=== PATIENT | female | born 1990 | race Caucasian/White ===

== ENCOUNTER 2020-04-07 22:47 | Emergency (ER) | payer BC, MEDICAID ==
[~2020-04-07] VITALS: Ht 162.6 cm; Wt 86.0 kg
--- NOTE | 2020-04-07 23:51 | NUR ---
PT. AMBULATORY TO ROOM FORM LOBBY WITH STEADY GAIT AT THIS TIME ACCOMPANIED BY FAMILY MEMBER. INSTRUCTED TO CHANGE INTO HOSPITAL GOWN.
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
[2020-04-08] MEDS ORDERED: FAMOTIDINE 20 MG/2 ML ONE (00:16)
[2020-04-08] MEDS ORDERED: LORazepam 2 MG/ML, 1ML ONE ×2 (00:16→01:57)
[2020-04-08] MEDS ORDERED: ONDANSETRON 2MG/ML, 2ML ONE (00:16)
[2020-04-08] MEDS ORDERED: ONDANSETRON 2MG/ML, 2ML IVPush ONE (00:30)
[2020-04-08] MEDS ORDERED: SODIUM CHLORIDE 0.9% 1,000ML IVBOLUS ONE (00:30)
[2020-04-08] MEDS ORDERED: SODIUM CHLORIDE FLUSH 10ML SYR IVF ONE (00:30)
[2020-04-08] MEDS ORDERED: FAMOTIDINE 20 MG/2 ML IVPush ONE (00:30)
[2020-04-08] MEDS: LORazepam 2 MG/ML, 1ML IVPush PRN ×2 (00:34→01:59)
--- NOTE | 2020-04-08 00:37 | NUR ---
IV ESTABLISHED AND PT. MEDICATED PER MAR. BLOOD DRAWN. IVF INFUSING PER MAR.
--- NOTE | 2020-04-08 00:46 | NUR ---
REPORT RECEIVED FROM MARCUS OBANDO. ASSUMED CARE OF PT
[2020-04-08 00:52] LABS: ALBUMIN 4.1 g/dL (3.4-5.0); ANION GAP 11 mmol/L (5-15); CALCIUM 8.9 mg/dL (8.5-10.1); CHLORIDE 105 mmol/L (98-107)
[2020-04-08 00:58] LABS: ALANINE AMINOTRANSFERASE 63 U/L (12-78); ALKALINE PHOSPHATASE 81 U/L (45-117); CREATININE 1.19 mg/dL (0.55-1.02); TOTAL PROTEIN 8.3 g/dL (6.4-8.2)
[2020-04-08 01:35] LABS: BASOPHILS # (AUTO) 0.04 x10^3/uL (0-0.1); BASOPHILS % (AUTO) 0 % (0-1); EOSINOPHILS # (AUTO) 0.01 x10^3/uL (0-0.4); EOSINOPHILS % (AUTO) 0 % (1-7); LYMPHOCYTES % (AUTO) 5 % (22-44); MD SCAN; MEAN CORPUSCULAR HEMOGLOBIN 31.8 pg (27.0-34.8); MEAN CORPUSCULAR HGB CONC 32.4 g/dL (32.4-35.8); MEAN PLATELET VOLUME 8.9 fL (7.4-10.4); MONOCYTES # (AUTO) 0.33 x10^3/uL (0.2-0.8); MONOCYTES % (AUTO) 2 % (2-9); NEUTROPHILS # (AUTO) 20.53 x10^3/uL (1.8-6.8); NEUTROPHILS % (AUTO) 93 % (42-75); PLATELET COUNT 296 x10^3/uL (130-400); RED BLOOD COUNT 4.71 x10^6/uL (3.82-5.3); RED CELL DISTRIBUTION WIDTH 14.2 % (9.6-15.2)
[2020-04-08 01:40] VITALS: BP 141/90
--- NOTE | 2020-04-08 01:44 | NUR ---
PT C/O SORE THROAT, REQUESTING PHYSICIAN TO ASSESS AGAIN
[2020-04-08] MEDS ORDERED: DEXAMETHASONE 4 MG TABLET ONE (01:47)
--- NOTE | 2020-04-08 01:49 | NUR ---
PT MEDICATED PER EMAR. 5 RIGHTS ADDRESSED
[2020-04-08] MEDS ORDERED: DEXAMETHASONE 4 MG/ML, 1ML IVPush ONE (02:00)
--- NOTE | 2020-04-08 03:03 | NUR ---
Patient/Caregiver given discharge instructions and they have confirmed that they understand the instructions. Patient ambulatory with steady gait.
== END 2020-04-08 03:05 | disposition home or self-care (01) ==
LOC: ED 04-08 00:17
DX: J02.9 Acute pharyngitis, unspecified (principal); R11.2 Nausea with vomiting, unspecified; E86.0 Dehydration; R10.84 Generalized abdominal pain; F10.239 Alcohol dependence with withdrawal, unspecified; Y90.9 Presence of alcohol in blood, level not specified
CPT/HCPCS: 36415; 80053; 83690; 84703; 85025; 96361; 96374; 96375; 96376; 99284; J1100; J2060; J2405; J3490; J7030

== ENCOUNTER 2020-04-09 15:25 | Emergency (ER) | payer MEDICAID ==
[~2020-04-09] VITALS: Ht 162.6 cm; Wt 81.9 kg
[2020-04-09 15:29] VITALS: BP 133/91
[2020-04-09] MEDS ORDERED: DEXAMETHASONE 4 MG TABLET PO ONE (15:37)
[2020-04-09] MEDS ORDERED: MAALOX/HYOSCYAMINE/LIDOCAINE 45 ML BTL PO ONE (16:00)
--- NOTE | 2020-04-09 16:48 | NUR ---
GENERAL OFFICE WORKER: PT SIGNED AMA FORM
== END 2020-04-09 16:49 | disposition left against medical advice (07) ==
LOC: ED 16:35
DX: J02.9 Acute pharyngitis, unspecified (principal)
CPT/HCPCS: 87081; 87880; 99283

== ENCOUNTER 2020-04-09 17:04 | Emergency (ER) | payer MEDICAID ==
[~2020-04-09] VITALS: Ht 162.6 cm; Wt 81.7 kg
--- NOTE | 2020-04-09 19:33 | NUR ---
Pt to room at this time.
[2020-04-09] MEDS ORDERED: DEXAMETHASONE 4 MG TABLET ONE (19:53)
[2020-04-09] MEDS ORDERED: DEXAMETHASONE 4 MG TABLET PO ONE (20:00)
--- NOTE | 2020-04-09 20:10 | NUR ---
REPORT GIVEN TO
[2020-04-09 20:34] VITALS: BP 158/106
--- NOTE | 2020-04-09 20:49 | NUR ---
REPORT TO NEDRA VELAZQUEZ.
--- NOTE | 2020-04-09 20:50 | NUR ---
REPORT RECEIVED FROM MARCUS CRUZ. PLAN OF CARE DISCUSSED
[2020-04-09] MEDS ORDERED: CEFTRIAXONE 250 MG IM ONE (21:00)
--- NOTE | 2020-04-09 21:05 | NUR ---
PATIENT MEDICATED PER EMAR, TOLERATED WELL. WAITING FOR DC PAPERWORK
[2020-04-09] MEDS ORDERED: CEFTRIAXONE 250 MG ONE (21:09)
[2020-04-09] MEDS ORDERED: LIDOCAINE-MPF 1%, 2ML ONE (21:10)
--- NOTE | 2020-04-09 21:36 | NUR ---
Patient given discharge instructions and they have confirmed that they understand the instructions. Patient ambulatory with steady gait.
== END 2020-04-09 21:38 | disposition home or self-care (01) ==
LOC: ED 19:27
DX: U07.1 COVID-19 (principal); J04.0 Acute laryngitis; R94.31 Abnormal electrocardiogram [ECG] [EKG]; Z20.2 Contact with and (suspected) exposure to infections with a predominantly sexual mode of transmission
CPT/HCPCS: 36415; 86308; 87635; 93005; 96372; 99284; J0696; 99283